=== PATIENT | male | born 1990 | race Caucasian/White ===

== ENCOUNTER → 2016-11-24 | Day surgery (SDC) | payer OTHER ==
[2016-11-24 09:50] LABS: HCT 41.5 % (42.0-52.0); HGB 13.5 g/dl (13.2-18.0); MCH 28.4 pg (25.0-31.0); MCHC 32.5 g/dL (32.0-36.0); MCV 87.2 fL (78.0-100.0); MPV 11.3 fL (6.0-9.5); RBC 4.76 M/uL (4.70-6.00); RDW 13.6 % (11.5-14.0); WBC 4.6 K/uL (4.0-10.5)
[2016-11-24 10:31] LABS: ALBUMIN 4.6 g/dL (3.5-5.0); BILIRUBIN - TOTAL 0.2 mg/dL (0.1-1.0); CREATININE 0.8 mg/dL (0.7-1.2); GLOBULIN (CALCULATION) 2.4 g/dL (2.2-4.2); POTASSIUM 3.8 mmol/L (3.5-5.1)
== END | disposition home or self-care (01) ==
LOC: FAS 09:34
PROVIDERS: Surgery
DX: K29.50 Unspecified chronic gastritis without bleeding (principal); K21.0 Gastro-esophageal reflux disease with esophagitis; F17.210 Nicotine dependence, cigarettes, uncomplicated; Z79.899 Other long term (current) drug therapy
CPT/HCPCS: 36415; 80053; 88305; 88312; J2704

== ENCOUNTER → 2016-12-30 | Day surgery (SDC) | payer OTHER ==
[~2016-12-30] VITALS: Ht 162.6 cm; Wt 54.0 kg
[2016-12-30 11:07] LABS: HCT 40.1 % (42.0-52.0); HGB 13.1 g/dl (13.2-18.0); MCH 28.5 pg (25.0-31.0); MCHC 32.7 g/dL (32.0-36.0); MCV 87.4 fL (78.0-100.0); MPV 11.2 fL (6.0-9.5); RBC 4.59 M/uL (4.70-6.00); RDW 13.9 % (11.5-14.0); WBC 5.2 K/uL (4.0-10.5)
[2016-12-30 11:28] LABS: ALBUMIN 4.3 g/dL (3.5-5.0); BILIRUBIN - TOTAL 0.2 mg/dL (0.1-1.0); CREATININE 0.8 mg/dL (0.7-1.2); GLOBULIN (CALCULATION) 2.4 g/dL (2.2-4.2); POTASSIUM 3.8 mmol/L (3.5-5.1); TOTAL PROTEIN 6.7 g/dL (6.4-8.3)
== END | disposition home or self-care (01) ==
LOC: FAS 09:30
PROVIDERS: Surgery
DX: K81.1 Chronic cholecystitis (principal); F17.210 Nicotine dependence, cigarettes, uncomplicated
CPT/HCPCS: 36415; 74300; 80053; 88304; J0131; J1885; J2270; J2405; J2704; J2710; J3010; Q9962